=== PATIENT | male | born 1995 | race African-American/Black ===

== ENCOUNTER 2023-03-19 10:45 | Emergency (ER) | payer OTHER ==
[~2023-03-19] VITALS: Ht 170.2 cm; Wt 78.0 kg
[2023-03-19] VITALS (7 sets, daily range): BP systolic 114–123; BP diastolic 75–85
[~2023-03-19 10:45] MED LIST: AMOXICILLIN500 MG OR; TYLENOL325 M1 RE
[2023-03-19] MEDS ORDERED: METHOCARBAMOL500 MG PO (13:16)
[2023-03-19] MEDS ORDERED: NAPROXEN500 MG PO (13:16)
== END 2023-03-19 13:25 | disposition home or self-care (01) | DRG 563 ==
LOC: ED 10:45
DX: S39.012A Strain of muscle, fascia and tendon of lower back, initial encounter (principal); S16.1XXA Strain of muscle, fascia and tendon at neck level, initial encounter; V49.40XA Driver injured in collision with unspecified motor vehicles in traffic accident, initial encounter

== ENCOUNTER 2023-11-03 18:11 | Emergency (ER) | payer OTHER ==
[~2023-11-03] VITALS: Ht 170.2 cm; Wt 76.0 kg
[~2023-11-03 18:11] MED LIST changes: +METHOCARBAMOL500 MG PO; +NAPROXEN500 MG PO
[2023-11-03 18:28] VITALS: BP 112/75
[2023-11-03 18:30] VITALS: BP 110/75
[2023-11-03 18:45] VITALS: BP 112/74
[2023-11-03 19:00] VITALS: BP 117/76
[2023-11-03 19:06] VITALS: BP 117/76
== END 2023-11-03 19:17 | disposition home or self-care (01) | DRG 125 ==
LOC: ED 18:11
PROC: 0HQ1XZZ Repair Face Skin, External Approach (ICD-10-PCS; principal; 2023-11-03)
DX: S01.112A Laceration without foreign body of left eyelid and periocular area, initial encounter (principal); W51.XXXA Accidental striking against or bumped into by another person, initial encounter; Y93.67 Activity, basketball

== ENCOUNTER 2023-11-11 08:43 | Emergency (ER) | payer OTHER ==
[~2023-11-11] VITALS: Ht 170.2 cm; Wt 72.0 kg
[2023-11-11 09:09] VITALS: BP 124/83
[2023-11-11 09:15] VITALS: BP 126/88
[2023-11-11 09:30] VITALS: BP 143/85
[2023-11-11 09:43] VITALS: BP 143/85
== END 2023-11-11 09:43 | disposition home or self-care (01) | DRG 950 ==
LOC: ED 08:43
DX: S01.112D Laceration without foreign body of left eyelid and periocular area, subsequent encounter (principal); X58.XXXD Exposure to other specified factors, subsequent encounter